=== PATIENT | female | born 1940 | race Caucasian/White ===

== ENCOUNTER → 2017-01-15 | Outpatient (CLI) | payer MEDICARE, OTHER | LOC: RAD 16:42 | PROVIDERS: ATTEND Nurse Practitioner Family | DX: M25.511 Pain in right shoulder (principal) ==

== ENCOUNTER 2017-02-06 18:04 | Emergency (ER) | payer MEDICARE, OTHER ==
--- NOTE | 2017-02-06 18:16 | ER Document Report ---
ED Medical Screen (RME) - General Stated Complaint: RIGHT SHOULDER PAIN Mode of Arrival: Wheelchair Information source: Patient Notes: pt presents to the ED for c/o right shoulder pain. Reports waiting to be referred to orthopedics. Was a patient of dr cartwright. MRI completed 01/14. Reports no pain last week. Pain returned last night. Took norco at 1545, still having pain. Denies trauma. I have greeted and performed a rapid initial assessment of this patient. A comprehensive ED assessment and evaluation of the patient, analysis of test results and completion of the medical decision making process will be conducted by additional ED providers. TRAVEL OUTSIDE OF THE [place] IN LAST 30 DAYS: No - Related Data Allergies/Adverse Reactions: Iodinated Contrast Media - Oral and Allergy (Intermediate, Verified 07/12/14 10: 40) Hives Past Medical History GI Medical History: Reports: Hx Diverticulitis, Hx Gastroesophageal Reflux Disease Psychiatric Medical History: Reports: Hx Depression - Anxiety Infectious Medical History: Reports: Hx C-Diff Past Surgical History: Reports: Hx Hysterectomy, Hx Orthopedic Surgery - bilat knee - Immunizations Immunizations up to date: Yes Hx Diphtheria, Pertussis, Tetanus Vaccination: Yes
--- NOTE | 2017-02-06 20:27 | ER Document Report ---
ED Extremity Problem, Upper - General Information source: Patient - HPI Patient complains to provider of: Pain Associated symptoms: Other - See above <YASH HENRIQUEZ - Last Filed: 02/06/17 20:43> - General Mode of Arrival: Wheelchair TRAVEL OUTSIDE OF THE [place] IN LAST 30 DAYS: No <RHIANNON HARDWICK - Last Filed: 02/06/17 23:00> - General Chief Complaint: Shoulder Pain Stated Complaint: RIGHT SHOULDER PAIN Notes: Patient is a 76 year old female who presents to the emergency department complaining of right shoulder pain. Patient has been told she has rotator cuff tears in her right shoulder but has yet to follow up with orthopedics. Patient reports the pain was exacerbated last night when her sister asked her to put her arm above her head and has not gone away. Patient states that the pain is through her whole shoulder and radiates up her neck and down her right arm all the way to her hands. (YASH HENRIQUEZ) - Related Data Allergies/Adverse Reactions: Iodinated Contrast Media - Oral and Allergy (Intermediate, Verified 02/06/17 18: 14) Hives Past Medical History - General Information source: Patient - Social History Smoking Status: Never Smoker Chew tobacco use (# tins/day): No Frequency of alcohol use: None Drug Abuse: None Family History: Reviewed & Not Pertinent, CVA, Hypertension Renal/ Medical History: Denies: Hx Peritoneal Dialysis GI Medical History: Reports: Hx Diverticulitis, Hx Gastroesophageal Reflux Disease Psychiatric Medical History: Reports: Hx Depression - Anxiety Infectious Medical History: Reports: Hx C-Diff Past Surgical History: Reports: Hx Hysterectomy, Hx Orthopedic Surgery - bilat knee - Immunizations Immunizations up to date: Yes Hx Diphtheria, Pertussis, Tetanus Vaccination: Yes Hx Pneumococcal Vaccination: 10/03/15 <RHIANNON HARDWICK - Last Filed: 02/06/17 23:00> Review of Systems - Review of Systems Constitutional: No symptoms reported EENT: No symptoms reported Cardiovascular: No symptoms reported Respiratory: No symptoms reported Gastrointestinal: No symptoms reported Genitourinary: No symptoms reported Female Genitourinary: No symptoms reported Musculoskeletal: See HPI, Joint pain - right shoulder Skin: No symptoms reported Hematologic/Lymphatic: No symptoms reported Neurological/Psychological: No symptoms reported -: Yes All other systems reviewed and negative <YASH HENRIQUEZ - Last Filed: 02/06/17 20:43> Physical Exam - Vital signs Interpretation: Normal - General General appearance: Appears well, Alert - HEENT Head: Normocephalic, Atraumatic Eyes: Normal Pupils: PERRL - Respiratory Respiratory status: No respiratory distress Chest status: Nontender Breath sounds: Normal Chest palpation: Normal - Cardiovascular Rhythm: Regular Heart sounds: Normal auscultation Murmur: No - Abdominal Inspection: Normal Distension: No distension Bowel sounds: Normal Tenderness: Nontender Organomegaly: No organomegaly - Back Back: Normal, Nontender - Extremities General upper extremity: Normal inspection, Tender, Normal color, Normal temperature General lower extremity: Normal inspection, Nontender, Normal color, Normal ROM , Normal temperature, Normal weight bearing. No: Sharita's sign Shoulder: Tender - Tenderness to palpation over super and infraspinatus. Pain with range of motion - Neurological Neuro grossly intact: Yes Cognition: Normal Orientation: AAOx4 Leslie Coma Scale Eye Opening: Spontaneous Leslie Coma Scale Verbal: Oriented Leslie Coma Scale Motor: Obeys Commands Leslie Coma Scale Total: 15 Speech: Normal Motor strength normal: LUE, RUE, LLE, RLE Sensory: Normal - Psychological Associated symptoms: Normal affect, Normal mood - Skin Skin Temperature: Warm Skin Moisture: Dry Skin Color: Normal <RHIANNON HARDWICK - Last Filed: 02/06/17 23:00> - Vital signs Vitals: Temp 97.7 F 02/06/17 18:14 Course <YASH HENRIQUEZ - Last Filed: 02/06/17 20:43> - Diagnostic Test Radiology reviewed: Reports reviewed <RHIANNON HARDWICK - Last Filed: 02/06/17 23:00> - Re-evaluation Re-evalutation: 02/06/17 Patient with MRI from this month which is showing severe rotator cuff tear. Patient does not have any worsening symptoms. Patient picture arm up yesterday to show her sister that she could move it and reinjured herself. Patient will be given muscle relaxant and a sling for comfort. She has pain medication at home which she is to continue to take. She will also be given the number for orthopedics. No other injuries. Stable for discharge. (RHIANNON HARDWICK) - Vital Signs Vital signs: Temp Pulse Resp BP Pulse Ox 97.7 F 02/06/17 18:14 Discharge <YASH HENRIQUEZ - Last Filed: 02/06/17 20:43> <RHIANNON HARDWICK - Last Filed: 02/06/17 23:00> - Discharge Clinical Impression: Rotator cuff dysfunction Qualifiers: Laterality: right Qualified Code(s): M67.911 - Unspecified disorder of synovium and tendon, right shoulder Condition: Stable Disposition: HOME, SELF-CARE Instructions: Rotator Cuff Injury ([facility]), Temporary Sling ([facility]) Prescriptions: Carisoprodol [Soma] 350 mg PO DAILYP PRN #10 tablet PRN Reason: Referrals: BARBARA DODSON MD [Primary Care Provider] - 02/08/17 LIBAN PINK DO [ACTIVE STAFF] - Follow up as needed Scribe Attestation: 02/06/17 23:00 I personally performed the services described in the documentation, reviewed and edited the documentation which was dictated to the scribe in my presence, and it accurately records my words and actions. (RHIANNON HARDWICK) Scribe Documentation - Scribe Written by [place]:: paris Kay, 02/06/[id number] acting as scribe for :: Isiah <YASH HENRIQUEZ - Last Filed: 02/06/17 20:43>
[2017-02-06] MEDS ORDERED: CARISOPRODOL 350 MG TABLET PO ONE (20:33)
[2017-02-07 08:21] VITALS: BP 172/86
== END 2017-02-06 20:50 | disposition home or self-care (01) ==
LOC: ER 18:04
DX: M67.911 Unspecified disorder of synovium and tendon, right shoulder (principal); M25.511 Pain in right shoulder; Z90.710 Acquired absence of both cervix and uterus
CPT/HCPCS: 99283; A9270; J3490